=== PATIENT | male | born 1995 | race African-American/Black ===

== ENCOUNTER 2023-11-01 21:55 | Emergency (ER) | payer SELFPAY ==
[2023-11-01] MEDS ORDERED: Ketorolac 30 MG/ML SDV IM ONE (22:43)
== END 2023-11-01 23:00 ==
LOC: VM.ED 21:55 → EDBD 21:55 → VM.ED 23:00
DX: S62.306A Unspecified fracture of fifth metacarpal bone, right hand, initial encounter for closed fracture (principal); S80.02XA Contusion of left knee, initial encounter; W19.XXXA Unspecified fall, initial encounter
CPT/HCPCS: 73130-RT; 73562-LT; 96372; 99283; J1885